=== PATIENT | female | born 1955 | race African-American/Black ===

== ENCOUNTER → 2018-03-25 | Day surgery (SDC) | payer BC ==
[~2018-03-25] MED LIST: HYDROmorphone 2 MG/ML VIAL IV PRN; IV RINGERS,LACTATED 1000ML 1,000 ML IV SCH; LIDOCAINE 1% PF 2 ML VIAL. ID PRN; MORPHINE SULFATE 2 MG/ML VIAL. IV PRN; ONDANSETRON PF 4 MG/2 ML VIAL. IV PRN; PROCHLORPERAZINE 10 MG/2 ML VIAL. IV PRN; PROP50TA17 PO; PROPOFOL 40 ML IV ONE; fentaNYL PF VIAL 100 MCG/2 ML VIAL IV PRN
[2018-03-25 14:13] VITALS: BP 124/72
--- NOTE | 2018-03-29 14:07 | PATHOLOGY ---
[facility] Accession Number: [id number] . 01 Material submitted: . SIGMOID POLYPECTOMY . 01 Clinical history: . Weight loss . 02 Diagnosis: Sigmoid colon polypectomy: - Tubular adenoma. [facility]/03/29/2018 . 02 Comment: There is no high-grade dysplasia or evidence of malignancy. ([facility] 03/29/2018) . 02 Electronically signed: . Ryan Starks MD, Pathologist NPI- [id number] . 01 Gross description: . Received in formalin labeled "Mcneil, Adelia, sigmoid polypectomy," is a 0.9 x 0.8 x 0.8 cm polypoid piece of cuello soft tissue. The margin is inked and the specimen is sectioned perpendicular to the margin and entirely submitted in cassette A1. ([facility]; 03/25/2018) TOB/TOB . 02 Pathologist provided ICD-10: D12.5 . 02 CPT . 162004 Specimen Comment: A courtesy copy of this report has been sent to Specimen Comment: [phone], . Specimen Comment: Report sent to / DR PULLIAM Performed at: 01 [facility] [address], [place] [id number] MD Colt Felder MD Phone: [phone] Performed at: 02 [facility] [address] [place], [place] [id number] MD Ryan Starks MD Phone: [phone]
== END | disposition home or self-care (01) ==
LOC: ENDOS 12:46
PROVIDERS: ATTEND Internal Medicine Gastroenterology
DX: D12.5 Benign neoplasm of sigmoid colon (principal); K64.0 First degree hemorrhoids; K29.50 Unspecified chronic gastritis without bleeding; Z88.0 Allergy status to penicillin; Z88.2 Allergy status to sulfonamides; Z91.040 Latex allergy status; M19.90 Unspecified osteoarthritis, unspecified site; Z72.89 Other problems related to lifestyle; Z79.899 Other long term (current) drug therapy; Z90.710 Acquired absence of both cervix and uterus
CPT/HCPCS: 43235; 45385; 88305; J2704; 45380